=== PATIENT | male | born 1995 | race Two or more races ===

== ENCOUNTER 2024-07-01 23:18 | Emergency (ER) | payer OTHER ==
[~2024-07-01] VITALS: Ht 175.3 cm; Wt 84.2 kg
[2024-07-02] MEDS ORDERED: AUG875T PO (01:49)
--- NOTE | 2024-07-02 01:50 | ED.PDOC ---
Eye-HPI HPI Comments This is a 29-year-old male presents to the ED chief complaint right ear pain x2 weeks. Patient states he has been having cold-like symptoms x2 weeks with right ear pain which radiates to the side of his head and occipital part of his scalp. He reports intermittent tactile fevers at home. Does note decrease in hearing in the right ear. He reports no known trauma to the ear. He denies chest pain, shortness breath, difficulty breathing, dizziness, nausea or vomiting. Chief Complaint: Earache Time Seen by MD: 23:23 Reviewed Notes: Nurses Notes, Medications, Allergies Allergies: Coded Allergies: No Known Drug Allergy (Verified Allergy, Unknown, 07/02/24) Information Source: Patient Mode of Arrival: Ambulatory Past Medical History PAST MEDICAL HISTORY: Denies Surgical History: Denies all surgeries Family History Family History: Reviewed,noncontributory to illness Social History Smoker: Non-Smoker Alcohol: Denies ETOH Use Drugs: Denies Drug Use EENTM: reports: ear pain (Right); denies: blurred vision, double vision, ear bleeding, ear discharge, ear drainage, ear ringing, eye pain, eye redness, hearing loss, mouth pain, mouth swelling, nasal discharge, nose bleeding, nose congestion, nose pain, photophobia, tearing, throat pain, throat swelling, voice changes, others Respiratory: denies: cough, hemoptysis, orthopnea, SOB at rest, shortness of b reath, SOB with excertion, stridor, wheezing, others Cardiovascular: denies: chest pain, dizzy spells, diaphoresis, Dyspnea on exertion, edema, irregular heart beat, left arm pain, lightheadedness, palpitations, PND, syncope, others Gastrointestinal: denies: abdomen distended, abdominal pain, blood streaked bowels, constipated, diarrhea, dysphagia, difficulty swallowing, hematemesis, melena, nausea, poor appetite, poor fluid intake, rectal bleeding, rectal pain, vomiting, others Genitourinary: denies: burning, dysuria, flank pain, frequency, hematuria, incontinence, penile discharge, penile sore, pain, testicle pain, testicle swelling, urgency, others Neurological: denies: dizziness, fainting, headache, left sided numbness, left sided weakness, numbness, paresthesia, pre-existing deficit, right sided numbness, right sided weakness, seizure, speech problems, tingling, tremors, weakness, others Musculoskeletal: denies: back pain, gout, joint pain, joint swelling, muscle pain, muscle stiffness, neck pain, others Integumetry: denies: bruises, change in color, change in hair/nails, dryness, laceration, lesions, lumps, rash, wounds, others Allergic/Immunocompromised: denies: Difficulty Healing, Frequent Infections, Hives, Itching, others Hematologic/Lymphatic: denies: anemia, blood clots, easy bleeding, easy bruising, swollen glands, others Endocrine: denies: excessive hunger, excessive sweating, excessive thirst, excessive urination, flushing, intolerance to cold, intolerance to heat, unexplained weight gain, unexplained weight loss, others Psychiatric: denies: anxiety, bipolar disorder, depression, hopeless, panic disorder, schizophrenia, sleepless, suicidal, others Physical Exam General Appearance: No Apparent Distress, Normal HEENT: Pharynx Normal, TM Abnormal (R) (Moderate erythema with bulging no noted drainage canal is clear without erythema or edema TM is intact. Left ear within normal limits) Neck: Full Range of Motion, Non-Tender Respiratory: Lungs Clear, No Respiratory Distress, Normal Breath Sounds Cardiovascular: No Murmur, Normal Peripheral Pulses, Regular Rate/Rhythm Breast Exam: Deferred Gastrointestinal: Non Tender, Soft Genitalia: Deferred Pelvic: Deferred Rectal: Deferred Extremities: Normal capillary refill, Normal inspection, Normal range of motion, Non-tender, No pedal edema Musculoskeletal : Apperance: Normal Neurologic: Alert, development educator II-XII nml as Tested, No Motor Deficits, Normal Affect, Normal Mood, No Sensory Deficits Cerebellar Function: Normal Reflexes: Normal Skin: Dry, Normal Color, Warm Lymphatic: No Adenopathy Was a procedure done? Was a procedure done?: No EENT DIFF Eye: N/A Ear: Foreign Body, Otitis Media, Perforation X-Ray, Labs, Meds, VS Vital Signs Date Time Temp Pulse Resp B/P (MAP) Pulse Ox O2 Delivery O2 Flow Rate FiO2 07/02/24 00:06 98.5 85 18 136/88 (104) 98 X-Ray, Labs, Meds, VS Comment Patient given Decadron 10 mg IM for the pain reports improvement in symptoms requesting discharge at this time. Script Augmentin twice daily times 10 days for otitis media of the right ear. Advised to follow up with his PCP in 2-3 days for re-evaluation and treatment plan and ear infection. [id number] Tylenol or Motrin as needed for the pain and fever per labeled dosing instructions. ER return precautions given patient indicated understanding agrees with discharge plan of care. Time of 1ST Reevaluation: 01:49 Reevaluation 1ST: Improved Patient Education/Counseling: Diagnosis, Treatment, Prognosis, Need For Follow Up Family Education/Counseling: No Family Present Departure 1 Departure Time of Disposition: 01:47 Impression: Primary Impression: Otitis media of left ear Qualified Codes: H65.192 - Other acute nonsuppurative otitis media, left ear Disposition: HOME / SELF CARE / HOMELESS Condition: Stable e-Prescriptions Amoxicillin & Pot Clavulanate (AUGMENTIN TABLET) 875 Mg Tb 1 TAB PO BID for 10 Days, #20 TAB Prov: SHAY COLLINS 07/02/24 Discharged With: Self Critical Care Note Critical Care Time?: No Stability Stability form required: SHAY Lima Jul 02, 2024 01:50
[2024-07-02 02:19] VITALS: BP 127/77; PULSE 68; RESP 18; TEMP 98.3; O2SAT 96
[2024-07-02] MEDS: DexAMETHasone SOD PHOS 10MG/1ML VIAL INJ IM ONE (02:49)
== END 2024-07-02 03:08 | disposition home or self-care (01) ==
LOC: ER 23:18
DX: H66.91 Otitis media, unspecified, right ear (principal)
CPT/HCPCS: 96372; 99283; J1100